=== PATIENT | female | born 1945 | race Caucasian/White ===

== ENCOUNTER → 2024-06-15 07:12 | Outpatient (REF) | payer MEDICARE, BC, SELFPAY | LOC: RCS 07:12 | PROVIDERS: ATTENDING PHYSICIAN Nurse Practitioner; FAMILY PHYSICIAN Internal Medicine | DX: I73.9 Peripheral vascular disease, unspecified (principal); R07.89 Other chest pain; R06.09 Other forms of dyspnea | CPT/HCPCS: 93017 ==

== ENCOUNTER → 2024-07-16 11:01 | Outpatient (REF) | payer MEDICARE, BC, SELFPAY | LOC: DHCBC/DCA 11:01 | PROVIDERS: ATTENDING PHYSICIAN Nurse Practitioner; FAMILY PHYSICIAN Internal Medicine | DX: R94.39 Abnormal result of other cardiovascular function study (principal); R06.09 Other forms of dyspnea | CPT/HCPCS: 78452; 93017; A9500 ==

== ENCOUNTER 2024-09-21 01:32 | Emergency (ER) | payer MEDICARE, BC, SELFPAY ==
[2024-09-21 01:50] VITALS: BP 168/78
[2024-09-21 02:16] LABS: % Basophils 0.4 % (0-2); % Eosinophils 3.7 % (0-6); % Immature Granulocytes 0.3 % (0-0.5); % Lymphocytes 30.4 % (20.5-51.1); % Monocytes 9.4 % (1.7-9.3); % Neutrophils 55.8 % (42.2-75.2); Absolute Eosinophils 0.3 10^3/uL (0-0.7); Absolute Lymphocytes 2.3 10^3/uL (1.2-3.4); Absolute Monocytes 0.7 10^3/uL (0.1-0.6); Absolute Neutrophils 4.3 10^3/uL (1.4-6.5); Hematocrit 39.8 % (37.0-47.0); Hemoglobin 13.6 g/dL (12.0-16.0); Mean Corp Hgb Conc. 34.2 g/dL (33.0-37.0); Mean Corpuscular Hgb 30.7 pg (27.0-31.0); Mean Corpuscular Volume 89.8 fL (81.0-99.0); Mean Platelet Volume 9.4 fL (7.4-10.4); Nucleated Red Blood Cells % 0 %; Platelet Count 239 10^3/uL (130-400); Red Blood Cell Count 4.43 10^6/uL (4.20-5.40); Red Cell Dist. Width 14.1 % (11.5-14.5); White Blood Cell Count 7.6 10^3/uL (4.8-10.8)
[2024-09-21 02:38] LABS: ALT (SGPT) 24 U/L (0-35); AST (SGOT) 27 U/L (14-36); Albumin 4.3 g/dl (3.5-5.0); Alkaline Phosphatase 139 U/L (38-126); Blood Urea Nitrogen 24 mg/dl (7-17); Calcium 10.3 mg/dl (8.4-10.2); Carbon Dioxide 30 mmol/L (22-30); Chloride 105 mmol/L (98-107); Glucose 105 mg/dl (70-99); Potassium 4.8 mmol/L (3.5-5.1); Sodium 143 mmol/L (135-145); Total Bilirubin 0.4 mg/dl (0.2-1.3); Total Protein 7.1 g/dl (6.3-8.2); eGFR > 60.00
[2024-09-21 02:45] LABS: Troponin I < 0.012 ng/ml
[2024-09-21 02:52] VITALS: BP 161/79
[2024-09-21 03:18] VITALS: BMI 24.2
[2024-09-21 04:18] VITALS: BP 151/69
[2024-09-21 05:00] VITALS: BP 153/73
[2024-09-21 06:00] VITALS: BP 170/73
--- NOTE | 2024-09-21 06:10 | ED.GENMED ---
History of Present Illness
General
Chief Complaint: Chest Pain
Source: patient and spouse
Exam Limitations: none
Time Seen by Provider: 09/21/24 06:02
Nursing documentation reviewed up to this point in time: agreed with
History of Present Illness
History of Present Illness:
79-year-old female presents with pressure in her chest, insomnia, shortness of breath, suffers from long COVID, could not sleep last night she was aware of the symptoms in her chest, no nausea or vomiting, she is very active gets chronic shortness
of breath no leg edema is hypertensive, reflux, anxiety, states this is different than her reflux no fever
Past History
Past History
ED Past Medical History: HTN, NIDDM, Psychiatric and Other (Long COVID)
Social History
Tobacco: Non-smoker
Alcohol: None
Drug: None
Personal:
Living: with family
Employment: Employed
Review of Systems
Review of Systems
All Other Systems: Not applicable
Constitutional: Reports fatigue; Denies fever
Respiratory: Reports trouble breathing
Cardiac: Reports chest pain
ABD/GI: Reports no symptoms
: Reports no symptoms
Musculoskeletal: Reports no symptoms
Neurological: Reports weakness
Hematologic/Lymphatic: Reports no symptoms
Psychiatric: Reports no symptoms
Phy Exam
Physical Exam
Physical Exam:
Physical Exam
General: no apparent distress, not acutely ill
Neck: No jaundice no pallor
Heart: s1/s2 regular rate and rhythm, no murmur. equal radial pulses.
Lungs: no acute respiratory distress. clear bilaterally
Abdomen: Not tender
Neuro: alert and oriented. no focal neurological deficits
Skin: no rash
Psychiatric: well kept. interactive and cooperative
Extremities: no edema. no calf tenderness.
Scores
Heart Score for Chest Pain Patients
STEMI patient?: No
History: Slightly or Non-Suspicious
ECG: Normal
Age: >/= 65 years
Risk Factors: 1 or 2 Risk Factors
Troponin: </= Normal Limit
Heart Score for Chest Pain Patients: 3
Heart Score Risk: 2.5% MACE over next 6 weeks
Course
Orders/Labs/Results
Orders:
Orders
09/21/24 01:53
Electrocardiogram (*1) Urgent
Reason for Study: Chest Pain
EKG- Treatment ONCE
09/21/24 02:03
Complete Blood Count/With Diff Urgent
Comprehensive Metabolic Panel Urgent
Monotest Urgent
Comment: ADD ON
Troponin I Urgent
09/21/24 02:52
CXR2 [CR Chest - 2 Views ] Urgent
Comment:
Reason For Exam: cough chest pressure
09/21/24 06:11
Add On- LAB Urgent
Tests Added?: monospot
09/21/24 06:33
D-Dimer Urgent
NT-proBNP Urgent
Troponin I Urgent
09/21/24 07:12
CT Chest PE Study Urgent
Comment:
Reason For Exam: cp ddimer up
Abnormal Lab Results
09/21/24 09/21/24
02:03 06:33
Absolute Monos (auto) 0.7 H 10^3/uL
(0.1-0.6)
Monocytes % 9.4 H %
(1.7-9.3)
D-Dimer 0.72 H ug/mlFEU
(0.00-0.50)
BUN 24 H mg/dl
(7-17)
Glucose 105 H mg/dl
(70-99)
Calcium 10.3 H mg/dl
(8.4-10.2)
Alkaline Phosphatase 139 H U/L
(38-126)
09/21/24 02:03
09/21/24 02:03
Vital Signs
Initial and Last Documented VS:
Initial Vital Signs
Temp Pulse Resp BP Pulse Ox
98.6 F 64 22 168/78 98
09/21/24 01:50 09/21/24 01:50 09/21/24 01:50 09/21/24 01:50 09/21/24 01:50
Last Documented Vital Signs
Temp Pulse Resp BP Pulse Ox
98.6 F 59 16 170/73 99
09/21/24 01:50 09/21/24 06:00 09/21/24 06:00 09/21/24 06:00 09/21/24 06:00
MDM/Problems Addressed
Differential Diagnosis Includes:
ACS heart failure PE long COVID pneumonia pneumothorax anemia thyroid
MDM/Problems Addressed:
Chronic shortness of breath
Chronic conditions affecting care: DM, HTN and Psychiatric illness
Acute Exacerbation and/or Progression of Chronic Illness: DM, HTN and Psychiatric illness
*Radiology
Radiology exam reviewed: preliminary read by ED provider
*Pulse Oximetry
Patient hypoxic: no
*EKG
Interpreted by ED Provider?: Yes
Interpretation: normal
Comparison EKG: no comparison EKG present
Heart Rate: 78
Rate: normal
Ischemia: no ischemia
*Quartz Orientator Interpretation
Rate: normal
Interpretation: normal
Heart Rate: 78
Rhythm: sinus
*Critical Care Note
Total Time (30-74mins, 75-104mins- exclusive of procedures): Not Applicable
Update Note
Update Note:
Update labs noted CT noted, looks well, will refer nonurgently to pulmonary perhaps she has intrinsic lung disease may benefit from PFTs?
ED Attending Note
-
Portions of this chart may have been created with voice recognition software.� Occasional wrong word or��sound alike� substitutions may have occurred due to the inherent limitations of voice recognition software.
Discharge Plan
Departure
Patient Disposition: Home (Routine Discharge)
Date of Disposition: 09/21/24
Time of Disposition: 08:33
Patient with high blood pressure during this ER visit?: No
Condition: Good
Discharge Problem:
Breath shortness
Instructions: Chest Pain CBC Follow Up, Shortness of breath in adults - ED discharge instructions
Prescriptions:
No Action
atorvastatin 40 mg Tablet
40 mg PO DAILY
esomeprazole magnesium 40 mg Capsule,Delayed Release(Dr/Ec)
40 mg PO DAILY
lisinopril 10 mg Tablet
10 mg PO DAILY
Januvia 100 mg Tablet
100 mg PO DAILY
levothyroxine 62.5 mcg Capsule
62.5 mcg PO DAILY
Prolia 60 mg/mL Syringe
60 mg SC [id number]
Referrals:
Bj Moreira MD [Family Provider] -
Alisha Hunter DO [Active] - Next open appointment
Activity Restrictions/Additional Instructions:
Rest, follow-up with Dr. Alisha Bañuelos gas to her so she has from pulmonary to discuss your symptoms
Interventions
Interventions:
*Risk Screen - Suicide Last Done: 09/21/24 01:50
*General Assessment Last Done: 09/21/24 02:53
*Neglect/Abuse Screening Last Done: 09/21/24 01:50
*ED- Fall Risk Assessment Last Done: 09/21/24 02:53
*ED COVID-19 Vaccine History Last Done: 09/21/24 02:53
ED- Cardiac Assessment Last Done: 09/21/24 03:15
Discharge Date and Time
Print Language: [id number]
[2024-09-21 07:00] LABS: D-Dimer 0.72 ug/mlFEU (0.00-0.50)
[2024-09-21 07:11] LABS: NT-proBNP 158 pg/ml; Troponin I < 0.012 ng/ml
[2024-09-21 07:19] LABS: Monotest Negative (Negative)
[2024-09-21 08:58] VITALS: BP 159/75
== END 2024-09-21 09:07 | disposition home or self-care (01) ==
LOC: EMR 01:32
PROVIDERS: Emergency Medicine; EMERGENCY PHYSICIAN Emergency Medicine; FAMILY PHYSICIAN Internal Medicine
DX: R06.02 Shortness of breath (principal); R07.9 Chest pain, unspecified; I10 Essential (primary) hypertension; E11.9 Type 2 diabetes mellitus without complications; G47.00 Insomnia, unspecified
CPT/HCPCS: 99285; 71046; 71275; 80053; 83880; 84484; 85025; 85379; 86308; 93005; Q9967